=== PATIENT | female | born 1960 | race Caucasian/White ===

== ENCOUNTER 2017-05-31 06:01 | Inpatient (IN) | payer OTHER ==
[~2017-05-31 06:01] MED LIST: BUPIVACAINE 0.5% (SDV) 30 ML, morphine SULFATE (PF) 8 MG, EPINEPHrine 0.3 MG, KETOROLAC... IRR
[2017-05-31] MEDS: traMADol 50 MG TAB PO (06:38)
[2017-05-31] MEDS: GABAPENTIN 300 MG CAP PO ×2 (06:38→21:22)
[2017-05-31] MEDS: DEXAMETHASONE 1 MG TAB PO (06:38)
[2017-05-31] MEDS ORDERED: TOBRAMYCIN 1.2 GM POWDER (06:51)
[2017-05-31] MEDS ORDERED: METOPROLOL 5 MG INJ (07:00)
[2017-05-31] MEDS ORDERED: ROCURONIUM 50 MG INJ (07:00)
[2017-05-31] MEDS ORDERED: BUPIVACAINE 0.5%/EPI (SDV) 30 ML INJ INJ (07:30)
[2017-05-31] MEDS ORDERED: MIDAZOLAM 1 MG/ML 2 ML INJ ×2 (07:44→10:35)
[2017-05-31] MEDS: LACTATED RINGER'S 1,000 ML IV* (07:45)
[2017-05-31] MEDS ORDERED: ROPIVACAINE 0.5 % 30 ML VIAL (07:47)
[2017-05-31] MEDS: TRANEXAMIC ACID 1,000 MG in DEXTROSE 5% 100 ML IVPB ×3 (08:00→11:20)
[2017-05-31] MEDS: CA CHLORIDE 10% 10 ML SYRINGE (08:56)
[2017-05-31] MEDS: THROMBIN 5000 UNIT VIAL (08:56)
[2017-05-31] MEDS: POLYMYXIN/BACITRACIN 1L IRRIG (08:58)
[2017-05-31] MEDS ORDERED: hydrALAzine 20 MG INJ (09:05)
[2017-05-31] MEDS ORDERED: ACETAMINOPHEN 500 MG TAB PO (10:00)
[2017-05-31] MEDS ORDERED: morphine 2 MG INJ IV (10:00)
[2017-05-31] MEDS ORDERED: OXYCODONE/ACETAMINOPHEN (5/325) TAB PO (10:00)
[2017-05-31] MEDS ORDERED: ZOLPIDEM 5 MG TAB PO (10:00)
[2017-05-31] MEDS ORDERED: DIPHENHYDRAMINE 50 MG INJ IV ×3 (10:00→11:00)
[2017-05-31] MEDS ORDERED: ONDANSETRON 4 MG INJ IV ×2 (10:00→11:00)
[2017-05-31] MEDS ORDERED: PROPOFOL 20 ML (10:28)
[2017-05-31] MEDS ORDERED: CEFAZOLIN 1 GM INJ (10:28)
[2017-05-31] MEDS ORDERED: LIDOCAINE 2% (SDV) 5 ML INJ (10:28)
[2017-05-31] MEDS ORDERED: ONDANSETRON 4 MG INJ (10:29)
[2017-05-31] MEDS ORDERED: morphine 10 MG INJ (10:33)
[2017-05-31] MEDS ORDERED: KETOROLAC 30 MG INJ (10:34)
[2017-05-31] MEDS ORDERED: FENTAnyl 50 MCG/ML VIAL ×2 (10:35→10:56)
[2017-05-31] MEDS ORDERED: NALOXONE (0.4 MG/ML) INJ IV (11:00)
[2017-05-31] MEDS ORDERED: METOCLOPRAMIDE 10 MG INJ IV (11:00)
[2017-05-31] MEDS ORDERED: hydrALAzine 20 MG INJ IV (11:00)
[2017-05-31] MEDS ORDERED: HYDROmorphONE (0.2 MG/ML) 10ML SYG IV (11:00)
[2017-05-31] MEDS ORDERED: LABETALOL HCL 20MG INJ IV (11:00)
[2017-05-31] MEDS: CEFAZOLIN 2 GM/50 ML (PMX) 50 ML IVPB (11:07)
[2017-05-31] MEDS: TRANEXAMIC ACID 1,000 MG in DEXTROSE 5% 100 ML IV (11:12)
[2017-05-31] MEDS: ONDANSETRON 4 MG INJ IV (11:19)
[2017-05-31] MEDS: HYDROmorphONE (0.2 MG/ML) 10ML SYG IV ×3 (11:19→12:04)
[2017-05-31] MEDS: MEPERIDINE 25 MG INJ IV (11:20)
[2017-05-31] MEDS: FENTAnyl 50 MCG/ML VIAL IV (11:28)
[2017-05-31] MEDS: CEFAZOLIN 1 GM/50 ML (PMX) 50 ML IVPB ×2 (13:30→17:21)
[2017-05-31] MEDS: CYCLOBENZAPRINE 10 MG TAB PO ×2 (16:53→21:23)
[2017-05-31] MEDS: DEXAMETHASONE 2 MG TAB PO ×2 (16:54→17:23)
[2017-05-31] MEDS: morphine (ER) 15 MG TAB PO (16:54)
[2017-05-31] MEDS: morphine 2 MG INJ IV ×2 (16:55→21:28)
[2017-05-31] MEDS: KETOROLAC 15 MG INJ IV (19:59)
[2017-05-31] MEDS: SENNA/DOCUSATE NA (8.6MG/50MG) TAB PO (21:23)
[2017-05-31] MEDS: ATORVASTATIN 40 MG TAB PO (21:23)
[2017-06-01] MEDS: DEXAMETHASONE 2 MG TAB PO ×2 (00:03→05:37)
[2017-06-01] MEDS: morphine (ER) 15 MG TAB PO ×4 (00:04→21:49)
[2017-06-01] MEDS: CEFAZOLIN 1 GM/50 ML (PMX) 50 ML IVPB (01:39)
[2017-06-01] MEDS: morphine 2 MG INJ IV ×3 (03:22→18:53)
[2017-06-01] MEDS: PANTOPRAZOLE (EC) 40 MG TAB PO (05:37)
[2017-06-01] MEDS: CYCLOBENZAPRINE 10 MG TAB PO ×3 (05:37→20:48)
[2017-06-01] MEDS: KETOROLAC 15 MG INJ IV ×2 (05:53→15:02)
[2017-06-01] MEDS: LEVOTHYROXINE 100 MCG TAB PO (06:46)
[2017-06-01] MEDS ORDERED: CA CARB PO (09:00)
[2017-06-01] MEDS ORDERED: ZN OXIDE PO (09:00)
[2017-06-01] MEDS ORDERED: POTASSIUM GLUCONATE 99 MG PO (09:00)
[2017-06-01] MEDS ORDERED: VIT D3 PO (09:00)
[2017-06-01] MEDS ORDERED: [UNRECOGNIZED DRUG - OTHER] PO (09:00)
[2017-06-01] MEDS ORDERED: MAG OX PO (09:00)
[2017-06-01] MEDS: ASPIRIN 81 MG TAB PO (09:27)
[2017-06-01] MEDS: SENNA/DOCUSATE NA (8.6MG/50MG) TAB PO ×2 (09:27→20:48)
[2017-06-01] MEDS: OXYCODONE/ACETAMINOPHEN (5/325) TAB PO ×3 (09:28→17:22)
[2017-06-01] MEDS: MAGNESIUM HYDROXIDE 30ML CUP PO (20:48)
[2017-06-01] MEDS: ATORVASTATIN 40 MG TAB PO (20:48)
[2017-06-01] MEDS: GABAPENTIN 300 MG CAP PO (20:48)
[2017-06-02] MEDS: morphine 2 MG INJ IV ×2 (00:22→14:26)
[2017-06-02] MEDS: OXYCODONE/ACETAMINOPHEN (5/325) TAB PO ×3 (01:48→12:50)
[2017-06-02] MEDS: PANTOPRAZOLE (EC) 40 MG TAB PO (06:55)
[2017-06-02] MEDS: CYCLOBENZAPRINE 10 MG TAB PO ×2 (06:55→14:26)
[2017-06-02] MEDS: LEVOTHYROXINE 100 MCG TAB PO (06:55)
[2017-06-02] MEDS: morphine (ER) 15 MG TAB PO ×2 (06:55→14:26)
[2017-06-02] MEDS: SENNA/DOCUSATE NA (8.6MG/50MG) TAB PO (08:05)
[2017-06-02] MEDS: ASPIRIN 81 MG TAB PO (08:05)
[2017-06-02] MEDS: KETOROLAC 15 MG INJ IV (11:33)
== END 2017-06-02 14:45 | disposition home health service (06) | DRG 483 ==
LOC: REC 06:01 → MS1 13:34
PROC: 0RRK00Z Replacement of Left Shoulder Joint with Reverse Ball and Socket Synthetic Substitute, Open Approach (ICD-10-PCS; principal; 2017-05-31 07:58)
PROC: 0PBB0ZZ Excision of Left Clavicle, Open Approach (ICD-10-PCS; 2017-05-31 07:58)
PROC: 0LS40ZZ Reposition Left Upper Arm Tendon, Open Approach (ICD-10-PCS; 2017-05-31 07:58)
DX: M19.112 Post-traumatic osteoarthritis, left shoulder (principal); Z68.42 Body mass index [BMI] 45.0-49.9, adult; T14.90XS Injury, unspecified, sequela; X58.XXXS Exposure to other specified factors, sequela; I10 Essential (primary) hypertension; E03.9 Hypothyroidism, unspecified; E78.5 Hyperlipidemia, unspecified; K21.9 Gastro-esophageal reflux disease without esophagitis; G89.4 Chronic pain syndrome; E66.01 Morbid (severe) obesity due to excess calories
CPT/HCPCS: 73030; 94660; 97116; 97162; 97166; 97530